=== PATIENT | male | born 1965 | race Hispanic/Latino ===

== ENCOUNTER 2023-01-08 06:45 | Day surgery (SDC) | payer BC, OTHER ==
[2023-01-05 10:37] LABS: BASOPHILS % (AUTO) 0.7 % (0.0-5.0); EOSINOPHILS % (AUTO) 3.8 % (0.0-8.0); LYMPHOCYTES % (AUTO) 28.7 % (21.0-51.0); MEAN CORPUSCULAR HEMOGLOBIN 30.4 pg (27.0-33.0); MEAN CORPUSCULAR HGB CONC 32.4 g/dL (32.0-36.0); MEAN CORPUSCULAR VOLUME 93.8 fL (79-99); MONOCYTES % (AUTO) 8.2 % (3.0-13.0); NEUTROPHILS % (AUTO) 58.5 % (40.0-77.0); PLATELET COUNT (AUTO) 210 K/uL (130-400); RED CELL DISTRIBUTION WIDTH 13.3 % (11.0-15.5); WHITE BLOOD COUNT (AUTO) 7.5 K/uL (4.8-10.8)
[2023-01-05 10:43] LABS: APPEARANCE,URINE CLEAR (CLEAR); BILIRUBIN,URINE NEGATIVE (NEGATIVE); COLOR,URINE LIGHT-YELLOW (YELLOW); GLUCOSE, URINE (UA) NEGATIVE (NEGATIVE); KETONES,URINE NEGATIVE (NEGATIVE); LEUKOCYTE ESTERASE ,URINE NEGATIVE Leu/uL (NEGATIVE); NITRATE,URINE NEGATIVE (NEGATIVE); OCCULT BLOOD,URINE NEGATIVE (NEGATIVE); PH,URINE 5.5 (5.0-8.0); PROTEIN,URINE NEGATIVE (NEGATIVE); UROBILINOGEN,URINE 0.2 mg/dL (0.2-1.0)
[2023-01-05 10:45] VITALS: BP 133/70
[2023-01-05 10:48] LABS: ALBUMIN 3.7 g/dL (3.5-5.0)
[2023-01-05 11:01] LABS: PROTHROMBIN TIME 10.9 SEC (9.6-11.6)
[~2023-01-08] VITALS: Ht 170.2 cm; Wt 140.0 kg
[2023-01-08] VITALS (16 sets, daily range): BP systolic 115–155; BP diastolic 62–92
[2023-01-08] MEDS: CEFAZOLIN SODIUM 1 GM VIAL IVPB SCH ×2 (06:00→11:50)
[~2023-01-08 06:45] MED LIST: LISI20TA24 PO; NAPR-1023 PO
[2023-01-08] MEDS ORDERED: LACTATED RINGERS 1000ML 1,000 ML IV ONE (07:33)
[2023-01-08] MEDS ORDERED: TRANEXAMIC ACID 1000MG/10ML ONE ×2 (08:30→09:18)
[2023-01-08] MEDS ORDERED: ROPIVACAINE 0.5% 5MG/ML 30ML IJ ONE ×2 (08:30→09:18)
[2023-01-08] MEDS ORDERED: KETOROLAC 30MG VIAL (30MG/ML) ONE (08:30)
[2023-01-08] MEDS ORDERED: ALBU1.252 IH (09:36)
[2023-01-08] MEDS ORDERED: MELA10TA2 PO (09:36)
[2023-01-08] MEDS ORDERED: SUPER B COMPLEX PO (09:36)
[2023-01-08] MEDS ORDERED: LIDOCAINE PF 100MG/5ML (2%) SYRINGE 5ML ONE (10:47)
[2023-01-08] MEDS ORDERED: MIDAZOLAM HCL 1 MG/ML 2ML VIAL ONE (10:47)
[2023-01-08] MEDS ORDERED: DEXAMETHASONE SOD PHOSPHATE 10MG/ML 1ML VIAL ONE (10:47)
[2023-01-08] MEDS ORDERED: PROPOFOL 10 MG/ML 20ML VIAL IV ONE (10:47)
[2023-01-08] MEDS ORDERED: ONDANSETRON 4MG INJ ONE (10:47)
[2023-01-08] MEDS ORDERED: ROCURONIUM 10MG/1ML SYR 10 MG/ML ML ONE (10:47)
[2023-01-08] MEDS ORDERED: FENTANYL CITRATE PF 50 MCG/1 ML 5ML AMP IV ONE (10:48)
[2023-01-08] MEDS ORDERED: SUGAMMADEX SODIUM 200 MG/2 ML VIAL IV ONE (12:31)
[2023-01-08] MEDS ORDERED: MEPERIDINE-PF 25 MG/ML SYG ONE (13:27)
[2023-01-08] MEDS ORDERED: CEPH250C2 PO (13:55)
[2023-01-08] MEDS ORDERED: ACET-2079 PO (13:55)
== END 2023-01-08 15:10 | disposition home or self-care (01) ==
LOC: DAH 06:45 → EDSTATUS 18:00
PROVIDERS: ATTEND Student in an Organized Health Care Education/Training Program
DX: M17.11 Unilateral primary osteoarthritis, right knee (principal); Z20.822 Contact with and (suspected) exposure to COVID-19; S80.251A Superficial foreign body, right knee, initial encounter; J45.909 Unspecified asthma, uncomplicated; G47.30 Sleep apnea, unspecified; I10 Essential (primary) hypertension; E66.01 Morbid (severe) obesity due to excess calories; K21.9 Gastro-esophageal reflux disease without esophagitis; Z72.89 Other problems related to lifestyle; Z98.890 Other specified postprocedural states; Z83.3 Family history of diabetes mellitus; Z83.438 Family history of other disorder of lipoprotein metabolism and other lipidemia; Z79.899 Other long term (current) drug therapy; Z79.01 Long term (current) use of anticoagulants; Z68.42 Body mass index [BMI] 45.0-49.9, adult; X58.XXXA Exposure to other specified factors, initial encounter; Y93.89 Activity, other specified; Y92.89 Other specified places as the place of occurrence of the external cause
CPT/HCPCS: 82040; 80048; 85025; 85610; 85730; 87088; 84134; 86140; 87426; 81003; 36415; 87641; 27310; 64447; A6260; A4663; A4215 ×2; J7120; J3010; J0690; J3490; J1100; J2001; J2250; J2704; J2405; J1885; J2175; J2795 ×2; G0168; A4649 ×4; A6255; A4615; A5120; A4223; A4222; A4221

== ENCOUNTER 2023-04-20 13:00 | Observation (INO) | payer BC, OTHER ==
[~2023-04-20] VITALS: Ht 170.2 cm; Wt 136.0 kg
[~2023-04-20 13:00] MED LIST changes: +MELA10TA2 PO; -NAPR-1023 PO; +SUPER B COMPLEX PO
[2023-04-20 13:33] LABS: BASOPHILS % (AUTO) 0.3 % (0.0-5.0); EOSINOPHILS % (AUTO) 1.5 % (0.0-8.0); HEMATOCRIT 41.8 % (42-54); LYMPHOCYTES % (AUTO) 23.5 % (21.0-51.0); MEAN CORPUSCULAR HEMOGLOBIN 30.4 pg (27.0-33.0); MEAN CORPUSCULAR HGB CONC 32.5 g/dL (32.0-36.0); MEAN CORPUSCULAR VOLUME 93.5 fL (79-99); MONOCYTES % (AUTO) 8.2 % (3.0-13.0); NEUTROPHILS % (AUTO) 66.2 % (40.0-77.0); PLATELET COUNT (AUTO) 212 K/uL (130-400); RED BLOOD CELL COUNT(AUTO) 4.47 MIL/uL (4.50-6.20); RED CELL DISTRIBUTION WIDTH 13.5 % (11.0-15.5); WHITE BLOOD COUNT (AUTO) 7.8 K/uL (4.8-10.8)
[2023-04-20 13:45] LABS: INR 0.95 (0.85-1.15); PROTHROMBIN TIME 10.4 SEC (9.6-11.6)
[2023-04-20 13:46] LABS: PARTIAL THROMBOPLASTIN TIME 30.3 SEC (26.3-35.5)
[2023-04-20 13:50] LABS: ALBUMIN 3.6 g/dL (3.5-5.0); CREATININE 0.8 mg/dL (0.5-1.5); CRP QUANTITATIVE 2.7 mg/L (0.00-9.0); POTASSIUM 3.9 mmol/L (3.5-5.1)
[2023-04-20 13:53] LABS: APPEARANCE,URINE CLEAR (CLEAR); BILIRUBIN,URINE NEGATIVE (NEGATIVE); COLOR,URINE YELLOW (YELLOW); GLUCOSE, URINE (UA) NEGATIVE (NEGATIVE); KETONES,URINE NEGATIVE (NEGATIVE); LEUKOCYTE ESTERASE ,URINE NEGATIVE Leu/uL (NEGATIVE); NITRATE,URINE NEGATIVE (NEGATIVE); OCCULT BLOOD,URINE NEGATIVE (NEGATIVE); PROTEIN,URINE 10 mg/dL (NEGATIVE); UROBILINOGEN,URINE 3 mg/dL (0.2-1.0)
[2023-04-20 13:59] LABS: MUCUS,URINE RARE LPF (None Seen)
[2023-04-20] MEDS ORDERED: ACET-2123 PO (14:03)
[2023-04-20 14:04] VITALS: BP 169/80
[2023-04-23] VITALS (24 sets, daily range): BP systolic 110–153; BP diastolic 52–89
[2023-04-23] MEDS ORDERED: CEFAZOLIN SODIUM 1 GM VIAL ONE (10:24)
[2023-04-23] MEDS ORDERED: LACTATED RINGERS 1000ML 1,000 ML IV ONE (10:24)
[2023-04-23] MEDS ORDERED: MIDAZOLAM HCL 1 MG/ML 2ML VIAL ONE (10:39)
[2023-04-23] MEDS ORDERED: ONDANSETRON 4MG INJ ONE ×2 (10:39→14:21)
[2023-04-23] MEDS ORDERED: PROPOFOL 10 MG/ML 20ML VIAL IV ONE (10:39)
[2023-04-23] MEDS ORDERED: FENTANYL CITRATE PF 50 MCG/1 ML 2ML VIAL ONE ×3 (10:40→13:47)
[2023-04-23] MEDS ORDERED: ROCURONIUM 10MG/1ML SYR 10 MG/ML ML ONE ×2 (10:40→11:44)
[2023-04-23] MEDS ORDERED: ROPIVACAINE 0.5% 5MG/ML 30ML IJ ONE ×2 (10:45→10:52)
[2023-04-23] MEDS ORDERED: LIDOCAINE 2%-EPI 1:200,000 20 ML VIAL IJ ONE (10:45)
[2023-04-23] MEDS ORDERED: KETOROLAC 30MG VIAL (30MG/ML) ONE (10:52)
[2023-04-23] MEDS ORDERED: TRANEXAMIC ACID 1000MG/10ML ONE ×2 (11:38→13:40)
[2023-04-23] MEDS ORDERED: EPHEDRINE SULFATE 50 MG/ML AMPULE ONE (11:39)
[2023-04-23] MEDS ORDERED: GLYCOPYRROLATE 1 MG/5 ML SYRINGE ONE (13:47)
[2023-04-23] MEDS ORDERED: NEOSTIGMINE 5MG/5ML SYR IV ONE (13:47)
[2023-04-23] MEDS ORDERED: DEXAMETHASONE SOD PHOSPHATE 10MG/ML 1ML VIAL ONE (13:48)
[2023-04-23] MEDS ORDERED: ALBUHFA IH (13:51)
[2023-04-23] MEDS ORDERED: KCL 20 MEQ ERTAB PO PRN (14:00)
[2023-04-23] MEDS: 0.9%NACL 1000ML 1,000 ML IV SCH ×2 (14:00→15:20)
[2023-04-23] MEDS ORDERED: ONDANSETRON 4MG INJ IVP PRN (14:00)
[2023-04-23] MEDS: GABAPENTIN 100 MG CAPSULE PO SCH ×2 (14:00→20:51)
[2023-04-23] MEDS ORDERED: DiphenhydrAMINE HCL 50 MG/ML VIAL IVP PRN (14:00)
[2023-04-23] MEDS ORDERED: POTASSIUM CHLORIDE 10% ELIXIR 20 MEQ/15 ML UDCUP PO PRN (14:00)
[2023-04-23] MEDS ORDERED: CALCIUM CARB 500MG PO PRN (14:00)
[2023-04-23] MEDS: KETOROLAC 15MG/ML VIAL (15MG/ML) IV SCH ×2 (14:00→21:47)
[2023-04-23] MEDS ORDERED: POTASSIUM CHLORIDE 20MEQ/100ML 100 ML IV PRN (14:00)
[2023-04-23] MEDS ORDERED: FERROUS FUMARATE 324 MG TABLET PO PRN (14:00)
[2023-04-23] MEDS ORDERED: MEPERIDINE-PF 25 MG/ML SYG ONE ×2 (14:21→14:31)
[2023-04-23] MEDS: KETOROLAC 15MG/ML VIAL (15MG/ML) IV PRN (17:17)
[2023-04-23] MEDS: CEFAZOLIN SODIUM 1 GM VIAL IVPB SCH (18:43)
[2023-04-23] MEDS: HYDROCODONE/ACETAMINOPHEN 5/325 MG TAB PO PRN ×2 (18:50→21:47)
[2023-04-23] MEDS: DOCUSATE SODIUM 100 MG CAP PO SCH (20:51)
[2023-04-24] VITALS: BP 130/63
[2023-04-24] MEDS: 0.9%NACL 1000ML 1,000 ML IV SCH ×2 (00:22→13:12)
[2023-04-24] MEDS: CEFAZOLIN SODIUM 1 GM VIAL IVPB SCH (02:19)
[2023-04-24] MEDS: HYDROCODONE/ACETAMINOPHEN 5/325 MG TAB PO PRN ×5 (02:20→21:46)
[2023-04-24 03:56] VITALS: BP 120/61
[2023-04-24] MEDS: KETOROLAC 15MG/ML VIAL (15MG/ML) IV SCH (05:53)
[2023-04-24] MEDS: CYCLOBENZAPRINE HCL 10 MG TABLET PO PRN ×2 (05:59→19:03)
[2023-04-24 06:15] LABS: HEMATOCRIT 34.3 % (42-54); MEAN CORPUSCULAR HEMOGLOBIN 30.7 pg (27.0-33.0); MEAN CORPUSCULAR HGB CONC 32.9 g/dL (32.0-36.0); MEAN CORPUSCULAR VOLUME 93.2 fL (79-99); RED BLOOD CELL COUNT(AUTO) 3.68 MIL/uL (4.50-6.20); RED CELL DISTRIBUTION WIDTH 13.7 % (11.0-15.5); WHITE BLOOD COUNT (AUTO) 8.3 K/uL (4.8-10.8)
[2023-04-24 06:25] LABS: CREATININE 0.9 mg/dL (0.5-1.5)
[2023-04-24] MEDS: GABAPENTIN 100 MG CAPSULE PO SCH ×3 (07:55→19:03)
[2023-04-24] MEDS: ASPIRIN 325MG TAB PO SCH (07:56)
[2023-04-24] MEDS: POLYETHYLENE GLYCOL 3350 17 GM POWD.PACK PO SCH (07:56)
[2023-04-24] MEDS: DOCUSATE SODIUM 100 MG CAP PO SCH ×2 (07:56→19:02)
[2023-04-24 08:00] VITALS: BP 113/60
[2023-04-24] MEDS: KETOROLAC 15MG/ML VIAL (15MG/ML) IV PRN ×3 (10:55→22:21)
[2023-04-24 12:00] VITALS: BP 124/53
[2023-04-24] MEDS: TRAMADOL HCL 50 MG TABLET PO PRN ×2 (12:09→19:03)
[2023-04-24 16:00] VITALS: BP 110/61
[2023-04-24 19:46] VITALS: BP 121/55
[2023-04-25] VITALS: BP 122/71
[2023-04-25 04:00] VITALS: BP 133/63
[2023-04-25] MEDS: HYDROCODONE/ACETAMINOPHEN 5/325 MG TAB PO PRN (05:53)
[2023-04-25 07:50] VITALS: BP 128/69
[2023-04-25] MEDS: POLYETHYLENE GLYCOL 3350 17 GM POWD.PACK PO SCH (08:53)
[2023-04-25] MEDS: ASPIRIN 325MG TAB PO SCH (08:53)
[2023-04-25] MEDS: GABAPENTIN 100 MG CAPSULE PO SCH ×2 (08:53→13:22)
[2023-04-25] MEDS: DOCUSATE SODIUM 100 MG CAP PO SCH (08:53)
[2023-04-25] MEDS: KETOROLAC 15MG/ML VIAL (15MG/ML) IV PRN ×2 (08:55→13:20)
[2023-04-25 11:00] VITALS: BP 135/80
[2023-04-25] MEDS ORDERED: FERR324T10 PO (13:53)
[2023-04-25] MEDS ORDERED: ASPI-1026 PO (13:53)
[2023-04-25] MEDS ORDERED: GABA100C PO (13:53)
[2023-04-25] MEDS ORDERED: HYDR-4060 PO (13:53)
[2023-04-25] MEDS ORDERED: DOCU-116 PO (13:53)
[2023-04-25] MEDS ORDERED: CYCL-309 PO (13:53)
[2023-04-26] MEDS ORDERED: BISACODYL 10 MG SUPP.RECT RC PRN (14:00)
== END 2023-04-25 18:45 ==
LOC: DAHIP 04-23 07:00 → UNDOADMIN 04-23 07:00 → EDSTATUS 04-23 13:00 → DAHIP 04-23 15:26 → 4DH 04-23 15:27
PROVIDERS: ADMIT Student in an Organized Health Care Education/Training Program; ATTEND Student in an Organized Health Care Education/Training Program
DX: M17.11 Unilateral primary osteoarthritis, right knee (principal); Z20.822 Contact with and (suspected) exposure to COVID-19; D62 Acute posthemorrhagic anemia; J45.909 Unspecified asthma, uncomplicated; I10 Essential (primary) hypertension; E66.01 Morbid (severe) obesity due to excess calories; Z68.42 Body mass index [BMI] 45.0-49.9, adult; Z79.899 Other long term (current) drug therapy; Z96.651 Presence of right artificial knee joint
CPT/HCPCS: 82040; 80048 ×2; 85025; 85610; 85730; 87088; 84134; 86140; 87426; 81001; 36415 ×2; 87641; 27447; 96376 ×3; 96365; 96366 ×2; 96375; 73560; 64447; 85027; 97161; 97039 ×4; 97116 ×4; 97530 ×2; G0378 ×51; A4663; A4215 ×2; J7120; J3010 ×3; J0690 ×3; J3490 ×5; J1100; J2710; J2250; J2704; J2405 ×2; J1885 ×8; J2175 ×2; J2795 ×2; G0168; A4649 ×3; C1713; C1776; A6255; A5120; A4223; A4222; A4221

== ENCOUNTER 2023-08-22 08:02 | Observation (INO) | payer BC ==
[2023-08-20 12:59] LABS: BASOPHILS # (AUTO) 0.02 K/uL (0.00-0.20); BASOPHILS % (AUTO) 0.3 % (0.0-5.0); EOSINOPHILS # (AUTO) 0.16 K/uL (0.00-0.70); EOSINOPHILS % (AUTO) 2.4 % (0.0-8.0); IMMATURE GRANULOCYTE ABSOLUTE 0.03 K/uL (0-1); LYMPHOCYTES # (AUTO) 1.7 K/uL (1.0-4.8); LYMPHOCYTES % (AUTO) 26.3 % (21.0-51.0); MEAN CORPUSCULAR HEMOGLOBIN 30.5 pg (27.0-33.0); MEAN CORPUSCULAR HGB CONC 32.1 g/dL (32.0-36.0); MEAN CORPUSCULAR VOLUME 94.8 fL (79-99); MONOCYTES # (AUTO) 0.6 K/uL (0.1-1.0); MONOCYTES % (AUTO) 8.9 % (3.0-13.0); NEUTROPHILS % (AUTO) 61.6 % (40.0-77.0); PLATELET COUNT (AUTO) 214 K/uL (130-400); RED BLOOD CELL COUNT(AUTO) 4.43 MIL/uL (4.50-6.20); RED CELL DISTRIBUTION WIDTH 13.2 % (11.0-15.5); WHITE BLOOD COUNT (AUTO) 6.5 K/uL (4.8-10.8)
[2023-08-20 13:02] LABS: ADD UA MICROSCOPIC YES
[2023-08-20 13:09] LABS: APPEARANCE,URINE CLEAR (CLEAR); BILIRUBIN,URINE NEGATIVE (NEGATIVE); COLOR,URINE YELLOW (YELLOW); GLUCOSE, URINE (UA) NEGATIVE (NEGATIVE); INR 0.94 (0.85-1.15); KETONES,URINE NEGATIVE (NEGATIVE); LEUKOCYTE ESTERASE ,URINE NEGATIVE Leu/uL (NEGATIVE); MUCUS,URINE MOD LPF (None Seen); NITRATE,URINE NEGATIVE (NEGATIVE); OCCULT BLOOD,URINE NEGATIVE (NEGATIVE); PH,URINE 5.5 (5.0-8.0); PROTEIN,URINE 30 mg/dL (NEGATIVE); PROTHROMBIN TIME 10.9 SEC (9.6-11.6)
[2023-08-20 13:11] LABS: PARTIAL THROMBOPLASTIN TIME 30.9 SEC (26.3-35.5)
[2023-08-20 13:13] VITALS: BP 151/78; PULSE 81; RESP 17
[2023-08-20 13:21] LABS: ALBUMIN 3.6 g/dL (3.5-5.0); POTASSIUM 3.9 mmol/L (3.5-5.1)
[2023-08-22] VITALS (25 sets, daily range): BP systolic 120–182; BP diastolic 70–101; PULSE 78–92; RESP 12–20
[~2023-08-22] VITALS: Ht 170.2 cm; Wt 135.6 kg
[~2023-08-22 08:02] MED LIST changes: +ACET-2123 PO; +ASPI-1026 PO; +GABA-529 PO; +IBUP-2077 PO; -LISI20TA24 PO; +LISI40TA9 PO; -MELA10TA2 PO
[2023-08-22] MEDS ORDERED: LACTATED RINGERS 1000ML 1,000 ML IV ONE (08:33)
[2023-08-22] MEDS ORDERED: CEFAZOLIN SODIUM 1 GM VIAL ONE (08:34)
[2023-08-22] MEDS: CEFAZOLIN SODIUM 2 GM VIAL ONE ×2 (08:38→14:59)
[2023-08-22] MEDS ORDERED: FENTANYL CITRATE PF 50 MCG/1 ML 5ML AMP IV ONE ×2 (12:01→13:28)
[2023-08-22] MEDS ORDERED: ROPIVACAINE 0.5% 5MG/ML 30ML IJ ONE ×2 (13:28→14:20)
[2023-08-22] MEDS ORDERED: MIDAZOLAM HCL 1 MG/ML 5ML VIAL ONE (13:28)
[2023-08-22] MEDS ORDERED: EPHEDRINE SULFATE 50 MG/ML AMPULE ONE (14:04)
[2023-08-22] MEDS ORDERED: TRANEXAMIC ACID 1000MG/10ML ONE (14:13)
[2023-08-22] MEDS ORDERED: MORPHINE PF 100MG/10ML AMP IV ONE (14:18)
[2023-08-22] MEDS ORDERED: FENTANYL CITRATE PF 50 MCG/1 ML 2ML VIAL ONE ×2 (14:19→16:38)
[2023-08-22] MEDS ORDERED: KETOROLAC 30MG VIAL (30MG/ML) ONE (14:20)
[2023-08-22] MEDS ORDERED: SUCCINYLCHOLINE CHLORIDE 20 MG/ML 10 ML VIAL ONE (15:46)
[2023-08-22] MEDS ORDERED: ONDANSETRON 4MG INJ ONE ×2 (15:46→16:54)
[2023-08-22] MEDS ORDERED: LIDOCAINE PF 100MG/5ML (2%) SYRINGE 5ML ONE (15:46)
[2023-08-22] MEDS ORDERED: DEXAMETHASONE SOD PHOSPHATE 10MG/ML 1ML VIAL ONE (15:46)
[2023-08-22] MEDS ORDERED: PROPOFOL 10 MG/ML 20ML VIAL IV ONE (15:46)
[2023-08-22] MEDS ORDERED: GLYCOPYRROLATE 1 MG/5 ML SYRINGE ONE (15:46)
[2023-08-22] MEDS ORDERED: NEOSTIGMINE 5MG/5ML SYR IV ONE (15:47)
[2023-08-22] MEDS ORDERED: ROCURONIUM 10MG/1ML SYR 10 MG/ML ML ONE (15:47)
[2023-08-22] MEDS ORDERED: OCTYL 2-CYANOACRYLATE 1 EACH TP ONE (16:15)
[2023-08-22] MEDS ORDERED: POTASSIUM CHLORIDE 20MEQ/100ML 100 ML IV PRN (16:30)
[2023-08-22] MEDS ORDERED: CALCIUM CARB 500MG PO PRN (16:30)
[2023-08-22] MEDS ORDERED: ONDANSETRON 4MG INJ IVP PRN (16:30)
[2023-08-22] MEDS ORDERED: DiphenhydrAMINE HCL 50 MG/ML VIAL IVP PRN (16:30)
[2023-08-22] MEDS ORDERED: KCL 20 MEQ ERTAB PO PRN (16:30)
[2023-08-22] MEDS ORDERED: CYCLOBENZAPRINE HCL 10 MG TABLET PO PRN (16:30)
[2023-08-22] MEDS ORDERED: POTASSIUM CHLORIDE 10% ELIXIR 20 MEQ/15 ML UDCUP PO PRN (16:30)
[2023-08-22] MEDS ORDERED: FERROUS FUMARATE 324 MG TABLET PO PRN (16:30)
[2023-08-22] MEDS ORDERED: MEPERIDINE-PF 25 MG/ML SYG ONE ×2 (16:54→17:14)
[2023-08-22] MEDS ORDERED: KETOROLAC 15MG/ML VIAL (15MG/ML) ONE (17:29)
[2023-08-22] MEDS: KETOROLAC 15MG/ML VIAL (15MG/ML) IV SCH ×2 (17:34→23:40)
[2023-08-22] MEDS: HYDROCODONE/ACETAMINOPHEN 5/325 MG TAB PO PRN (19:33)
[2023-08-22] MEDS: 0.9%NACL 1000ML 1,000 ML IV SCH ×2 (20:55→23:58)
[2023-08-22] MEDS: LISINOPRIL 40 MG TABLET PO SCH (20:56)
[2023-08-22] MEDS ORDERED: GABAPENTIN 100 MG CAPSULE PO SCH (21:00)
[2023-08-22] MEDS: CEFAZOLIN SODIUM 2 GM VIAL IVPB SCH (21:07)
[2023-08-23] MEDS: CEFAZOLIN SODIUM 2 GM VIAL IVPB SCH (05:30)
[2023-08-23 08:00] VITALS: O2SAT 97
[2023-08-23] MEDS: KETOROLAC 15MG/ML VIAL (15MG/ML) IV SCH (08:30)
[2023-08-23] MEDS: MULTIVITAMIN WITH MINERALS TABLET PO SCH (09:00)
[2023-08-23] MEDS: POLYETHYLENE GLYCOL 3350 17 GM POWD.PACK PO SCH (09:00)
[2023-08-23] MEDS: LISINOPRIL 40 MG TABLET PO SCH ×2 (09:00→20:03)
[2023-08-23] MEDS: ASPIRIN 325MG EC TAB PO SCH (09:00)
[2023-08-23] MEDS: GABAPENTIN 100 MG CAPSULE PO SCH ×3 (09:00→20:03)
[2023-08-23] MEDS: 0.9%NACL 1000ML 1,000 ML IV SCH (12:30)
[2023-08-23] MEDS: HYDROCODONE/ACETAMINOPHEN 5/325 MG TAB PO PRN ×2 (13:45→20:03)
[2023-08-23 14:45] LABS: HEMATOCRIT 35.5 % (42-54); MEAN CORPUSCULAR HEMOGLOBIN 30.8 pg (27.0-33.0); MEAN CORPUSCULAR HGB CONC 32.1 g/dL (32.0-36.0); MEAN CORPUSCULAR VOLUME 95.9 fL (79-99); RED BLOOD CELL COUNT(AUTO) 3.7 MIL/uL (4.50-6.20); WHITE BLOOD COUNT (AUTO) 7.1 K/uL (4.8-10.8)
[2023-08-23 15:38] LABS: CREATININE 0.9 mg/dL (0.5-1.5); POTASSIUM 3.8 mmol/L (3.5-5.1)
[2023-08-23 16:00] VITALS: BP 133/72; PULSE 105; RESP 20
[2023-08-23] MEDS ORDERED: KETOROLAC 15MG/ML VIAL (15MG/ML) IV PRN (16:30)
[2023-08-23 19:56] VITALS: BP 148/79; PULSE 99; RESP 20
[2023-08-23 20:00] VITALS: O2SAT 93
[2023-08-24 00:10] VITALS: BP 135/81; PULSE 95; RESP 19
[2023-08-24] MEDS: HYDROCODONE/ACETAMINOPHEN 5/325 MG TAB PO PRN ×3 (03:27→17:06)
[2023-08-24 03:49] VITALS: BP 154/82; PULSE 108; RESP 18
[2023-08-24 07:46] VITALS: BP 142/82; PULSE 94; RESP 17
[2023-08-24 08:00] VITALS: O2SAT 95
[2023-08-24] MEDS: MULTIVITAMIN WITH MINERALS TABLET PO SCH (09:20)
[2023-08-24] MEDS: GABAPENTIN 100 MG CAPSULE PO SCH ×2 (09:21→13:11)
[2023-08-24] MEDS: POLYETHYLENE GLYCOL 3350 17 GM POWD.PACK PO SCH (09:21)
[2023-08-24] MEDS: ASPIRIN 325MG EC TAB PO SCH (09:21)
[2023-08-24] MEDS: LISINOPRIL 40 MG TABLET PO SCH (09:21)
[2023-08-24 11:30] VITALS: BP 121/55; PULSE 99; RESP 19
[2023-08-24] MEDS ORDERED: MAGNESIUM HYDROXIDE 30 ML/UDCUP PO SCH (11:30)
[2023-08-24] MEDS ORDERED: DOCU-116 PO (15:03)
[2023-08-24] MEDS ORDERED: CYCL-309 PO (15:03)
[2023-08-24] MEDS ORDERED: HYDR-4060 PO (15:03)
[2023-08-24] MEDS ORDERED: LACTULOSE 20 GM/30 ML UDCUP PO ONE (16:00)
[2023-08-24 16:21] VITALS: BP 148/87; PULSE 87; RESP 20
[2023-08-25] MEDS ORDERED: BISACODYL 10 MG SUPP.RECT RC PRN (16:30)
== END 2023-08-24 17:44 ==
LOC: DAH 08:02 → DAHIP 08:03 → DAH 08:03 → 2BH 17:33 → DAHIP 17:56 → 4DH 18:00
PROVIDERS: ADMIT Student in an Organized Health Care Education/Training Program; ATTEND Student in an Organized Health Care Education/Training Program
DX: M17.12 Unilateral primary osteoarthritis, left knee (principal); D62 Acute posthemorrhagic anemia; G89.18 Other acute postprocedural pain; I10 Essential (primary) hypertension; K21.9 Gastro-esophageal reflux disease without esophagitis; G47.30 Sleep apnea, unspecified; R26.89 Other abnormalities of gait and mobility; R26.9 Unspecified abnormalities of gait and mobility; E66.01 Morbid (severe) obesity due to excess calories; Z79.899 Other long term (current) drug therapy
CPT/HCPCS: 82040; 80048 ×2; 85025; 85610; 85730; 87088; 84134; 86140; 81001; 36415 ×2; 87641; 64447; 27447; 96376 ×3; 96365; 96375; 73560; 85027; 97161; 97116 ×3; 97530 ×11; G0378 ×44; A4663; J7120 ×2; A4215 ×2; J3010 ×4; J0690 ×4; J3490 ×3; J1100; J2710; J0330; J2001; J2250; J2704; J2274; J2405 ×2; J1885 ×5; J2175 ×2; J2795 ×2; C1713 ×2; G0168; A4930; A4649 ×2; C1776; A6255; A5120; A4223; A4222; A4221

== ENCOUNTER 2024-04-18 05:53 | Day surgery (SDC) | payer OTHER ==
[2024-04-16 13:30] LABS: BASOPHILS # (AUTO) 0.04 K/uL (0.00-0.20); BASOPHILS % (AUTO) 0.5 % (0.0-5.0); EOSINOPHILS % (AUTO) 1.4 % (0.0-8.0); HEMATOCRIT 49.3 % (42-54); IMMATURE GRANULOCYTE ABSOLUTE 0.02 K/uL (0-1); LYMPHOCYTES # (AUTO) 1.3 K/uL (1.0-4.8); LYMPHOCYTES % (AUTO) 18.1 % (21.0-51.0); MEAN CORPUSCULAR HEMOGLOBIN 30.6 pg (27.0-33.0); MEAN CORPUSCULAR HGB CONC 31.8 g/dL (32.0-36.0); MEAN CORPUSCULAR VOLUME 96.1 fL (79-99); MONOCYTES # (AUTO) 0.6 K/uL (0.1-1.0); MONOCYTES % (AUTO) 7.9 % (3.0-13.0); NEUTROPHILS # (AUTO) 5.3 K/uL (1.8-7.7); NEUTROPHILS % (AUTO) 71.8 % (40.0-77.0); PLATELET COUNT (AUTO) 214 K/uL (130-400); RED BLOOD CELL COUNT(AUTO) 5.13 MIL/uL (4.50-6.20); RED CELL DISTRIBUTION WIDTH 13.7 % (11.0-15.5); WHITE BLOOD COUNT (AUTO) 7.3 K/uL (4.8-10.8)
[2024-04-16 13:32] VITALS: BP 172/89; PULSE 96; RESP 16
[2024-04-16 13:40] LABS: ALBUMIN 3.7 g/dL (3.5-5.0); INR <= 0.93 (0.85-1.15); POTASSIUM 3.5 mmol/L (3.5-5.1)
[2024-04-16 13:41] LABS: PARTIAL THROMBOPLASTIN TIME 29.3 SEC (26.3-35.5)
[2024-04-16 14:36] LABS: ERYTHROCYTE SEDIMENTATION RATE 18 MM/HR (0-20)
[2024-04-18] VITALS (19 sets, daily range): BP systolic 130–170; BP diastolic 75–98; PULSE 66–86; RESP 15–18
[~2024-04-18] VITALS: Ht 175.3 cm; Wt 138.2 kg
[~2024-04-18 05:53] MED LIST changes: -ACET-2123 PO; -GABA-529 PO
[2024-04-18] MEDS ORDERED: FAMOTIDINE 20MG VIAL IV ONE (06:33)
[2024-04-18] MEDS ORDERED: ACETAMINOPHEN 1,000 MG/100 ML VIAL IV ONE (06:33)
[2024-04-18] MEDS: CEFAZOLIN SODIUM 1 GM VIAL ONE (06:46)
[2024-04-18] MEDS: CEFAZOLIN SODIUM 2 GM VIAL ONE (06:46)
[2024-04-18] MEDS ORDERED: ROPIVACAINE 0.5% 5MG/ML 30ML ONE (06:46)
[2024-04-18] MEDS ORDERED: KETAMINE 50MG/ML SYRINGE 50 MG/ML DISP.SYRIN ONE (06:46)
[2024-04-18] MEDS: LACTATED RINGERS 1000ML 1,000 ML IV ONE (06:46)
[2024-04-18] MEDS ORDERED: PROPOFOL 10 MG/ML 20ML VIAL IV ONE (06:49)
[2024-04-18] MEDS ORDERED: LIDOCAINE PF 100MG/5ML (2%) SYRINGE 5ML ONE (06:49)
[2024-04-18] MEDS ORDERED: ROCURONIUM BROMIDE 10MG/1ML 5ML VL ONE ×2 (06:50→07:51)
[2024-04-18] MEDS ORDERED: FENTANYL CITRATE PF 50 MCG/1 ML 2ML VIAL ONE (06:50)
[2024-04-18] MEDS: CEFAZOLIN SODIUM 2 GM VIAL IVPB ONE (07:06)
[2024-04-18] MEDS: BUPIVACAINE/PF 0.25% 30ML VIAL IJ ONE (07:13)
[2024-04-18] MEDS ORDERED: DEXAMETHASONE SOD PHOSPHATE 10MG/ML 1ML VIAL ONE (07:20)
[2024-04-18] MEDS ORDERED: ONDANSETRON 4MG INJ ONE (07:20)
[2024-04-18] MEDS ORDERED: EPINEPHRINE PF 1MG (1:1,000) 1 MG/ML AMP ONE (07:37)
[2024-04-18] MEDS ORDERED: BUPIVACAINE/PF 0.25% 30ML VIAL IJ ONE (07:44)
[2024-04-18] MEDS ORDERED: SUGAMMADEX SODIUM 200 MG/2 ML VIAL IV ONE (07:55)
[2024-04-18] MEDS ORDERED: ACET-2079 PO (09:56)
== END 2024-04-18 11:25 | disposition home or self-care (01) ==
LOC: DAH 05:53
PROVIDERS: ATTEND Student in an Organized Health Care Education/Training Program
DX: M67.261 Synovial hypertrophy, not elsewhere classified, right lower leg (principal); M25.561 Pain in right knee; T84.84XA Pain due to internal orthopedic prosthetic devices, implants and grafts, initial encounter; I10 Essential (primary) hypertension; K21.9 Gastro-esophageal reflux disease without esophagitis; E66.9 Obesity, unspecified; G47.30 Sleep apnea, unspecified; Z79.899 Other long term (current) drug therapy; Z79.01 Long term (current) use of anticoagulants; Z83.3 Family history of diabetes mellitus; Z82.49 Family history of ischemic heart disease and other diseases of the circulatory system; Z68.42 Body mass index [BMI] 45.0-49.9, adult
CPT/HCPCS: 82040; 80048; 85025; 85610; 85730; 85651; 84134; 86140; 36415; 87641; 29873; 64447; A4663; A4649 ×2; J7120; J3490 ×4; J3010; J0690 ×3; J1100; J0665 ×2; J2001; J0171 ×2; J2704; J2405; J2795; A6223; A4930; A5120; A4215; A4223; A4213; A4222; A4221; A6450